=== PATIENT | female | born 1955 | race Caucasian/White ===

== ENCOUNTER → 2017-06-22 | Outpatient (CLI) | payer OTHER, MEDICAID | LOC: FIMAGING 15:31 | DX: G35 Multiple sclerosis (principal) ==

== ENCOUNTER → 2017-11-29 | Outpatient (CLI) | payer OTHER, MEDICAID | LOC: FIMAGING 11:28 | PROVIDERS: ATTEND Internal Medicine Geriatric Medicine | DX: Z12.31 Encounter for screening mammogram for malignant neoplasm of breast (principal) ==